=== PATIENT | female | born 1930 | race Caucasian/White ===

== ENCOUNTER 2018-01-16 03:13 | Inpatient (IN) ==
--- NOTE | 2018-01-16 03:34 | ED ---
HPI General Chief Complaint: Trauma Stated Complaint: Trauma transfer Time Seen by Provider: 01/16/18 03:15 Source: patient and EMS Mode of arrival: EMS Limitations: physical limitation History of Present Illness HPI Narrative: 87-year-old female complains of right shoulder pain, right chest wall pain and right upper back pain. Patient states that she fell out off a chair at home this evening. Patient denies any head injury. Patient denies any headache or neck pain. Patient denies any visual change. Patient complains of sharp pain localized to the right shoulder right chest and right upper back. Patient denies abdominal pain. Patient denies any focal weakness or numbness of the extremity. Patient complained the right ankle pain. Patient has history of hypertension, atrial fibrillation on aspirin 81 mg daily and Eliquis, hyperlipidemia, COPD, hypothyroidism, status post CVA, osteoarthritis. Patient also on Plavix 75 mg daily. complaint: Reports fall Onset (ago): hour(s) Fall from: chair Fall witnessed: yes, by family Place fall occurred: home Loss of consciousness: none Prolonged down time: no Symptoms prior to fall: Reports none Context: Reports tripped/slipped Location of injury: Reports chest and back Location of injury - extremities: Right: shoulder and ankle Severity: severe Severity scale (1-10): 10 Related Data Home Medications Medication Instructions Recorded Confirmed apixaban 2.5 mg PO BID 01/16/18 01/16/18 aspirin [Aspir-81] 81 mg PO DAILY 01/16/18 01/16/18 atorvastatin 40 mg PO DAILY 01/16/18 01/16/18 clopidogrel 75 mg PO DAILY 01/16/18 01/16/18 docusate sodium 100 mg PO BID 01/16/18 01/16/18 Allergies Allergy/AdvReac Type Severity Reaction Status Date / Time No Known Allergies Allergy Mild Uncoded 08/08/07 21:19 Review of Systems ROS: all other systems reviewed are negative PMFSH History History 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 SKIN: Focused skin assessment warm/dry. HEAD: Normocephalic. EYES: No scleral icterus. No injection or drainage. NECK: Supple, trachea midline. No JVD or lymphadenopathy. CARDIOVASCULAR: Regular rate and rhythm without murmurs, gallops, or rubs. RESPIRATORY: Patient has decreased breath sounds right chest. #[address] chest tube [address] right chest wall, mid axillary line. GASTROINTESTINAL: Abdomen soft, non-tender, nondistended. MUSCULOSKELETAL: Ecchymosis swelling tenderness noted right upper anterior chest wall area. Tenderness on palpation right clavicle. BACK: Nontender without obvious deformity. No CVA tenderness. Neurologic exam normal. Procedures Chest Tube Chest Tube 1: Chest Tube Location: Mid-Axillary Chest Size of Tube (cm): 22 Chest Tube Procedure: Yes betadine prep and sterile drapes applied Tube Sutured to Skin: Yes Sterile Dressing Applied: Yes Anesthesia: 1% Lidocaine Volume anesthetic (mL): 6 Incision made with: #11 blade [place] of [employer] [place]: Yes Tube Drainage: none Post Procedure CXR?: Yes Progress: Resolution of right pneumothorax. Patient Tolerated Procedure: Yes Post Procedure: sutured to skin and sterile dressing applied Course Initial Documented Vital Signs Temperature 98.9 F 01/16/18 03:26 Pulse Rate 72 01/16/18 03:26 Respiratory Rate 19 01/16/18 03:26 Pulse Oximetry 94 L 01/16/18 03:26 Last Documented Vital Signs Temperature 98.9 F 01/16/18 03:26 Pulse Rate 72 01/16/18 03:26 Respiratory Rate 19 01/16/18 03:26 Pulse Oximetry 95 01/16/18 04:10 Critical Care Time Critical Care Time: Yes Total Critical Care Time: 60 Attestation: Aggregate critical care time was 60 minutes. Time to perform other separately billable procedures was not included in the critical care time. My time did not include minutes spent treating any other patients simultaneously or on activities that did not directly contribute to the patient's treatment. The services I provided to this patient were to treat and/or prevent clinically significant deterioration that could result in: I provided critical care services requiring my management, as noted below: Chart data review, documentation time, medication orders and management, vital sign assessments/reviewing monitor data, ordering and reviewing lab tests, ordering and interpreting/reviewing x-rays and diagnostic studies, care of the patient and discussion of the patient with the admitting physicians. Medical Decision Making MDM Narrative Medical decision making narrative: 87-year-old female, trauma transfer from [facility] to [facility]. Patient has persistent right pneumothorax despite chest tube placement. Medical Screen Exam Complete: Yes Emergency Medical Condition: Yes Lab Data Result diagrams: 01/16/18 03:35 01/16/18 03:35 Lab Results 01/16/18 01/16/18 01/16/18 Range/Units 03:35 03:35 03:35 WBC 11.7 H (4.0-11.0) th/mm3 RBC 4.29 (4.00-5.30) mil/mm3 Hgb 12.4 (11.6-15.3) gm/dL Hct 37.0 (35.0-46.0) % MCV 86.4 (80.0-100.0) fL MCH 28.9 (27.0-34.0) pg MCHC 33.4 (32.0-36.0) % RDW 13.4 (11.6-17.2) % Plt Count 242 (150-450) th/mm3 MPV 7.1 (7.0-11.0) fL Prelim Diff (Auto) Slide review pending Neut % (Auto) 90.4 H (16.0-70.0) % Lymph % (Auto) 4.8 L (9.0-44.0) % [place] % (Auto) 4.4 (0.0-8.0) % Eos % (Auto) 0.1 (0.0-4.0) % Baso % (Auto) 0.3 (0.0-2.0) % Neut # (Auto) 10.6 H (1.8-7.7) th/mm3 Lymph # (Auto) 0.6 L (1.0-4.8) th/mm3 [place] # (Auto) 0.5 (0.0-0.9) th/mm3 Eos # (Auto) 0.0 (0.0-0.4) th/mm3 Baso # (Auto) 0.0 (0.0-0.2) th/mm3 WBC Differential Manual diff final Seg Neuts % (Manual) 71 H (16-70) % Band Neuts % (Manual) 17 H (0-6) % Lymphocytes % (Manual) 3 L (9-44) % Monocytes % (Manual) 9 H (0-8) % Abs Neuts (Manual) 10.3 H (1.8-7.7) th/mm3 Differential Comment . Toxic Granulation 1+ H (None) Platelet Estimate Normal (Normal) Platelet Morphology Normal (Normal) Acanthocytes (Spur) Occ H (None) PT 10.2 (9.8-11.6) sec INR 1.0 Ratio APTT 21.2 L (24.3-30.1) sec Sodium 133 L (136-145) meq/L Potassium 3.3 L (3.5-5.1) meq/L Chloride 101 (98-107) meq/L Carbon Dioxide 22.3 (21.0-32.0) meq/L Anion Gap 10 (5-15) meq/L BUN 11 (7-18) mg/dL Creatinine 0.52 (0.50-1.00) mg/dL Estimated GFR Greater than 89 (>89) mL/min Random Glucose 118 H (74-106) mg/dL Calcium 7.4 L* (8.5-10.1) mg/dL Prot Corrected Calcium 7.9 L (8.5-10.1) mg/dL Total Bilirubin 0.4 (0.2-1.0) mg/dL AST 22 (15-37) U/L ALT 18 (10-53) U/L Alkaline Phosphatase 65 (45-117) U/L Total Protein 6.2 L (6.4-8.2) g/dL Albumin 3.4 (3.4-5.0) g/dL Blood Type Blood Type Recheck Antibody Screen 01/16/18 Range/Units 03:35 WBC (4.0-11.0) th/mm3 RBC (4.00-5.30) mil/mm3 Hgb (11.6-15.3) gm/dL Hct (35.0-46.0) % MCV (80.0-100.0) fL MCH (27.0-34.0) pg MCHC (32.0-36.0) % RDW (11.6-17.2) % Plt Count (150-450) th/mm3 MPV (7.0-11.0) fL Prelim Diff (Auto) Neut % (Auto) (16.0-70.0) % Lymph % (Auto) (9.0-44.0) % [place] % (Auto) (0.0-8.0) % Eos % (Auto) (0.0-4.0) % Baso % (Auto) (0.0-2.0) % Neut # (Auto) (1.8-7.7) th/mm3 Lymph # (Auto) (1.0-4.8) th/mm3 [place] # (Auto) (0.0-0.9) th/mm3 Eos # (Auto) (0.0-0.4) th/mm3 Baso # (Auto) (0.0-0.2) th/mm3 WBC Differential Seg Neuts % (Manual) (16-70) % Band Neuts % (Manual) (0-6) % Lymphocytes % (Manual) (9-44) % Monocytes % (Manual) (0-8) % Abs Neuts (Manual) (1.8-7.7) th/mm3 Differential Comment Toxic Granulation (None) Platelet Estimate (Normal) Platelet Morphology (Normal) Acanthocytes (Spur) (None) PT (9.8-11.6) sec INR Ratio APTT (24.3-30.1) sec Sodium (136-145) meq/L Potassium (3.5-5.1) meq/L Chloride (98-107) meq/L Carbon Dioxide (21.0-32.0) meq/L Anion Gap (5-15) meq/L BUN (7-18) mg/dL Creatinine (0.50-1.00) mg/dL Estimated GFR (>89) mL/min Random Glucose (74-106) mg/dL Calcium (8.5-10.1) mg/dL Prot Corrected Calcium (8.5-10.1) mg/dL Total Bilirubin (0.2-1.0) mg/dL AST (15-37) U/L ALT (10-53) U/L Alkaline Phosphatase (45-117) U/L Total Protein (6.4-8.2) g/dL Albumin (3.4-5.0) g/dL Blood Type O Positive Blood Type Recheck Required Antibody Screen Negative Imaging Data Radiologist's impression: Chest X-Ray 01/16/18 03:25 CONCLUSION: 1. Smallbore right-sided chest tube in place with moderate residual pneumothorax. 2. Patchy airspace disease in the right mid to lower lung zones which may reflect volume loss versus pulmonary contusions. 3. Multiple right-sided rib fractures. Chest X-Ray 01/16/18 04:11 CONCLUSION: 1. Resolution of right-sided pneumothorax following interval placement of large bore right apical chest tube. Discharge Plan Discharge Disposition Patient Disposition: 30 Still Patient Discharge Details Diagnosis: Pneumothorax on right, Right rib fracture, Fracture of clavicle, right, closed Physicians Team ED Provider: Heron Rico Primary Care Provider: Rishabh Beck Attending Provider: Shaquille Davies Status ED Status: Admitted Patient
[2018-01-16] MEDS: Sod Chloride 0.9% Inj 1,000 ML IV.CONT SCH ×3 (03:36→23:14)
[2018-01-16] MEDS ORDERED: Midazolam Inj 5 MG/ML 1 ML Vial IV.PUSH ONE (03:59)
[2018-01-16] MEDS ORDERED: Morphine Inj 4 MG/ML Vial IV.PUSH ONE (04:00)
[2018-01-16 04:02] LABS: Baso % (Auto) 0.3 % (0.0-2.0); Eos % (Auto) 0.1 % (0.0-4.0); Hemoglobin 12.4 gm/dL (11.6-15.3); Lymph # (Auto) 0.6 th/mm3 (1.0-4.8); Lymph % (Auto) 4.8 % (9.0-44.0); Mean Corpuscular HGB Conc 33.4 % (32.0-36.0); Mean Corpuscular Hemoglobin 28.9 pg (27.0-34.0); Mean Corpuscular Volume 86.4 fL (80.0-100.0); Mean Platelet Volume 7.1 fL (7.0-11.0); Mono # (Auto) 0.5 th/mm3 (0.0-0.9); Mono % (Auto) 4.4 % (0.0-8.0); Neut # (Auto) 10.6 th/mm3 (1.8-7.7); Neut % (Auto) 90.4 % (16.0-70.0); Platelet Count 242 th/mm3 (150-450); Red Blood Count 4.29 mil/mm3 (4.00-5.30); Red Cell Distribution Width 13.4 % (11.6-17.2); White Blood Count 11.7 th/mm3 (4.0-11.0)
[2018-01-16 04:04] LABS: Activated Partial Thrombo Time 21.2 sec (24.3-30.1); Prothrombin Time 10.2 sec (9.8-11.6)
[2018-01-16 04:09] LABS: Alanine Aminotransferase 18 U/L (10-53); Albumin 3.4 g/dL (3.4-5.0); Alkaline Phosphatase 65 U/L (45-117); Anion Gap 10 meq/L (5-15); Aspartate Aminotransferase 22 U/L (15-37); Blood Urea Nitrogen 11 mg/dL (7-18); Calcium 7.4 mg/dL (8.5-10.1); Carbon Dioxide 22.3 meq/L (21.0-32.0); Chloride 101 meq/L (98-107); Glomerular Filtration Rate Greater Than 89 mL/min (>89); Glucose,Random 118 mg/dL (74-106); Potassium 3.3 meq/L (3.5-5.1); Sodium 133 meq/L (136-145); Total Protein 6.2 g/dL (6.4-8.2)
[2018-01-16 04:28] LABS: Lymphocytes 3 % (9-44); Monocytes 9 % (0-8); Platelet Estimate Normal (Normal); Platelet Morphology Normal (Normal)
--- NOTE | 2018-01-16 04:28 | XR ---
EXAM DATE: 01/16/2018 3:25 AM EDT AGE/SEX: 87 years / Female INDICATIONS: Trauma to chest post fall today. Right sided chest tube placement. CLINICAL DATA: This is the patient's initial encounter. Patient reports that signs and symptoms have been present for 1 day and indicates a pain score of 10/10. MEDICAL/SURGICAL HISTORY: None. None. COMPARISON: No prior exams available for comparison. FINDINGS: There is a smallbore right-sided chest tube terminating in the medial mid right hemithorax. There is a moderate sized right-sided pneumothorax measuring 4.8 cm at the apex. No significant mediastinal sh ift. Patchy airspace disease in the right mid to lower lung zone. Cardiac silhouette is mildly enlarg ed. Multiple right-sided rib fractures. CONCLUSION: 1. Smallbore right-sided chest tube in place with moderate residual pneumothorax. 2. Patchy airspace disease in the right mid to lower lung zones which may reflect volume loss versus pulmonary contusions. 3. Multiple right-sided rib fractures. Electronically signed by: Yoel Rouse MD 01/16/2018 4:27 AM EDT
[2018-01-16 04:29] LABS: Acanthocytes Occ; Toxic Granulation 1+
--- NOTE | 2018-01-16 04:53 | XR ---
EXAM DATE: 01/16/2018 4:11 AM EDT AGE/SEX: 87 years / Female INDICATIONS: Right sided chest tube placement. CLINICAL DATA: This is the patient's subsequent encounter. Patient reports that signs and symptoms h ave been present for 1 day and indicates a pain score of 6/10. MEDICAL/SURGICAL HISTORY: None. None. COMPARISON: [facility], CHEST 1V SINGLE AP, 01/16/2018. . FINDINGS: Interval placement of large bore right apical chest tube with near interval resolution of moderate-si zed right pneumothorax. Stable small bore right-sided chest tube. Remainder of exam is unchanged. CONCLUSION: 1. Resolution of right-sided pneumothorax following interval placement of large bore right apical ch est tube. Electronically signed by: Yoel Rouse MD 01/16/2018 4:52 AM EDT
[2018-01-16] MEDS: Acetaminophen Inj 650 MG/65 ML VIAL IV.SIG SCH ×3 (06:25→20:00)
--- NOTE | 2018-01-16 07:43 | P.CONOP ---
[facility] Orthopedics Consult Note - [facility] Consult date: 01/16/18 Requesting physician: Anya Sim Consult reason: fracture Chief complaint: Rt Pneumothorax, Mult Left Rib Fxs, Rt Clavicle Fx Narrative: [facility] Narrative: 87-year-old female complains of right shoulder pain, right chest wall pain and right upper back pain. Patient states that she fell out off a chair at home this evening. Patient denies any head injury. Patient denies any headache or neck pain. Patient denies any visual change. Patient complains of sharp pain localized to the right shoulder right chest and right upper back. Patient denies abdominal pain. Patient denies any focal weakness or numbness of the extremity. Patient complained the right ankle pain. Patient has history of hypertension, atrial fibrillation on aspirin 81 mg daily and Eliquis, hyperlipidemia, COPD, hypothyroidism, status post CVA, osteoarthritis. Patient also on Plavix 75 mg daily. Studies and x-ray shows evidence of multiple right rib fractures and a midshaft right clavicle fracture with moderate comminution but no significant displacement. 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 - Medical History Medical History: Medical History (Last Reviewed 01/16/18 @ 03:40 by Heron Rico MD) Atrial fibrillation COPD (chronic obstructive pulmonary disease) CVA (cerebral vascular accident) Hyperlipidemia Hypertension Hypothyroidism Osteoarthritis - Surgical History Surgical History: Surgical History (Last Reviewed 01/16/18 @ 03:40 by Heron Rico MD) No history of previous surgery - Tobacco History Second Hand Smoke Exposure: No Smoking Status: Never smoker - Alcohol History How Often Do You Have a Drink Containing Alcohol: Never - Immunization History Tetanus Immunization: <5 Years Hx Influenza Vaccine This Season: Yes Medications and Allergies Active Medications: Active Medications Albuterol (Duoneb Neb (Ant)) 1 ampul NEB Q6HR NEB ANT Albuterol (Duoneb Neb (Prn)) 1 ampul NEB Q2HR NEB PRN PRN Reason: SHORTNESS OF BREATH Atorvastatin Calcium (Lipitor) 40 mg PO HS ANT Chlorhexidine Gluconate (Chlorhexidine 2% Cloth) 3 pack TOPICAL DAILY@0400 [facility] Stop: 01/22/18 03:59 Chlorhexidine Gluconate (Chlorhexidine 2% Cloth) 3 pack TOPICAL DAILY@0400 PRN PRN Reason: Extra cloth needed Stop: 01/22/18 03:59 Docusate Sodium (Colace) 100 mg PO BID [facility] Enalaprilat (Vasotec Inj) 1.25 mg IV.PUSH Q8H PRN PRN Reason: Blood pressure 180/95 Last Admin: 01/16/18 06:26 Dose: 1.25 mg Famotidine (Pepcid) 20 mg PO BID [facility] Sodium Chloride (Ns Inj) 1,000 mls @ 100 mls/hr IV.CONT .Q10H [facility] Last Admin: 01/16/18 03:36 Dose: 100 mls/hr Acetaminophen (Ofirmev Inj) 650 mg in 65 mls @ 400 mls/hr IV.SIG Q6H [facility] Stop: 01/16/18 23:55 Last Infusion: 01/16/18 07:04 Dose: Infused Ondansetron HCl (Zofran Inj) 4 mg IV.PUSH Q6H PRN PRN Reason: NAUSEA OR VOMITING Sodium Chloride (Ns Flush) 2 ml IV.FLUSH UNSCH PRN PRN Reason: FLUSH AFTER USING IV ACCESS Sodium Chloride (Ns Flush) 2 ml IV.FLUSH BID [facility] Allergies Allergy/AdvReac Type Severity Reaction Status Date / Time No Known Allergies Allergy Mild Uncoded 08/08/07 21:19 Home Medications Medication Instructions Recorded Confirmed Type apixaban 2.5 mg PO BID 01/16/18 01/16/18 History aspirin [Aspir-81] 81 mg PO DAILY 01/16/18 01/16/18 History atorvastatin 40 mg PO DAILY 01/16/18 01/16/18 History clopidogrel 75 mg PO DAILY 01/16/18 01/16/18 History docusate sodium 100 mg PO BID 01/16/18 01/16/18 History Exam Vital signs: Vital Signs 01/16/18 03:26 01/16/18 03:31 01/16/18 04:10 Temperature 98.9 F Pulse Rate 72 Respiratory Rate 19 Blood Pressure Pulse Oximetry 94 L 94 L 95 01/16/18 05:27 01/16/18 05:45 Temperature 98.7 F Pulse Rate 77 Respiratory Rate 15 13 Blood Pressure 173/88 H Pulse Oximetry 98 Intake & Output 01/15/18 01/16/18 01/16/18 18:59 06:59 18:59 Intake Total 65 Output Total 1225 / 1225 Balance -1225 / -1225 65 65 Weight 46.5 kg Intake: IV Ofirmev Inj 650 mg In 65 ml @ 65 65 400 mls/hr IV.SIG Q6H ANT Rx#: [id number] Output: Urine Amount (Catheter) 1225 / 1225 Indwelling Urethral Catheter 1225 / 1225 Other: Date of Last Bowel Movement 01/14/18 Weight On Admission 46.5 kg Narrative: Exam Narrative Exam Narrative: GENERAL: Well-nourished, well-developed patient. SKIN: Focused skin assessment warm/dry. HEAD: Normocephalic. EYES: No scleral icterus. No injection or drainage. NECK: Supple, trachea midline. No JVD or lymphadenopathy. CARDIOVASCULAR: Regular rate and rhythm without murmurs, gallops, or rubs. RESPIRATORY: Patient has decreased breath sounds right chest. #8 [place] chest tube in place right chest wall, mid axillary line. GASTROINTESTINAL: Abdomen soft, non-tender, nondistended. MUSCULOSKELETAL: Ecchymosis swelling tenderness noted right upper anterior chest wall area. Tenderness on palpation right clavicle. No tenderness over the region of the proximal humerus. Elbow is nontender. Radial pulse 2+. Sensation normal. Pain with range of motion. She is in a sling BACK: Nontender without obvious deformity. No CVA tenderness. Neurologic exam normal. Results - Labs Result Diagrams: 01/16/18 03:35 01/16/18 03:35 Labs: Laboratory Results - last 24 hr 01/16/18 01/16/18 01/16/18 03:35 03:35 03:35 WBC 11.7 H RBC 4.29 Hgb 12.4 Hct 37.0 MCV 86.4 MCH 28.9 MCHC 33.4 RDW 13.4 Plt Count 242 MPV 7.1 Prelim Diff (Auto) Slide review pending Neut % (Auto) 90.4 H Lymph % (Auto) 4.8 L [place] % (Auto) 4.4 Eos % (Auto) 0.1 Baso % (Auto) 0.3 Neut # (Auto) 10.6 H Lymph # (Auto) 0.6 L [place] # (Auto) 0.5 Eos # (Auto) 0.0 Baso # (Auto) 0.0 WBC Differential Manual diff final Seg Neuts % (Manual) 71 H Band Neuts % (Manual) 17 H Lymphocytes % (Manual) 3 L Monocytes % (Manual) 9 H Abs Neuts (Manual) 10.3 H Differential Comment . Toxic Granulation 1+ H Platelet Estimate Normal Platelet Morphology Normal Acanthocytes (Spur) Occ H PT 10.2 INR 1.0 APTT 21.2 L Sodium 133 L Potassium 3.3 L Chloride 101 Carbon Dioxide 22.3 Anion Gap 10 BUN 11 Creatinine 0.52 Estimated GFR Greater than 89 Random Glucose 118 H Calcium 7.4 L* Prot Corrected Calcium 7.9 L Total Bilirubin 0.4 AST 22 ALT 18 Alkaline Phosphatase 65 Total Protein 6.2 L Albumin 3.4 Blood Type Blood Type Recheck Antibody Screen 01/16/18 03:35 WBC RBC Hgb Hct MCV MCH MCHC RDW Plt Count MPV Prelim Diff (Auto) Neut % (Auto) Lymph % (Auto) [place] % (Auto) Eos % (Auto) Baso % (Auto) Neut # (Auto) Lymph # (Auto) [place] # (Auto) Eos # (Auto) Baso # (Auto) WBC Differential Seg Neuts % (Manual) Band Neuts % (Manual) Lymphocytes % (Manual) Monocytes % (Manual) Abs Neuts (Manual) Differential Comment Toxic Granulation Platelet Estimate Platelet Morphology Acanthocytes (Spur) PT INR APTT Sodium Potassium Chloride Carbon Dioxide Anion Gap BUN Creatinine Estimated GFR Random Glucose Calcium Prot Corrected Calcium Total Bilirubin AST ALT Alkaline Phosphatase Total Protein Albumin Blood Type O Positive Blood Type Recheck Required Antibody Screen Negative - Diagnostic results Imaging: Impressions Chest X-Ray 01/16/18 03:25 CONCLUSION: 1. Smallbore right-sided chest tube in place with moderate residual pneumothorax. 2. Patchy airspace disease in the right mid to lower lung zones which may reflect volume loss versus pulmonary contusions. 3. Multiple right-sided rib fractures. I have reviewed the x-ray and the radiologist interpretation. There is evidence of multiple right rib fractures and evidence of a comminuted midshaft to mid distal third fracture of the right clavicle without significant displacement Chest X-Ray 01/16/18 04:11 CONCLUSION: 1. Resolution of right-sided pneumothorax following interval placement of large bore right apical chest tube. I have reviewed the x-ray and the radiologist interpretation. There is evidence of mild displacement of a comminuted mid to distal third fracture of the right clavicle. Multiple right rib fractures Assessment and Plan - Assessment and Plan Fracture right clavicle, comminuted, midshaft, mildly displaced. Multiple right rib fractures. Pneumothorax. PLAN: Sling to the right arm. Limited range of motion of the right shoulder and arm. Likely nonsurgical treatment of the right clavicle fracture. Sometimes, this displaces significantly, especially with multiple rib fractures. If significant displacement develops, delayed surgical treatment might be a consideration. With her overall age and medical condition, I would prefer nonsurgical treatment
[2018-01-16] MEDS ORDERED: amLODIPine 5 MG Tablet PO SCH (09:30)
[2018-01-16] MEDS: Sodium Chloride 0.9% 2 ML Flush BID IV.FLUSH SCH ×2 (09:52→21:12)
[2018-01-16] MEDS: Famotidine 20 MG Tablet PO SCH ×2 (09:52→23:12)
[2018-01-16] MEDS: Docusate Sodium 100 MG Capsule PO SCH ×2 (09:52→23:12)
--- NOTE | 2018-01-16 10:45 | US ---
EXAM DATE: 01/16/2018 12:00 AM EDT AGE/SEX: 87 years / Female INDICATIONS: Syncope. CLINICAL DATA: This is the patient's initial encounter. Patient reports that signs and symptoms have been present for 1 day and indicates a pain score of 0/10. MEDICAL/SURGICAL HISTORY: Chronic obstructive pulmonary disease. Atrial fibrillation. CVA. Hype rlipidemia. Hypertension. Hypothyroidism. Osteoarthritis. None. COMPARISON: No prior exams available for comparison. VELOCITY PARAMETERS: ICA/CCA Ratio: Right 1.1 , Left 1.1 ICA: Right 88 cm/sec, Left 73 cm/sec CCA: Right 80 cm/sec, Left 69 cm/sec ECA: Right 68 cm/sec, Left 86 cm/sec Vertebral: Right 72 cm/sec antegrade, Left 19 cm/sec antegrade FINDINGS: Right Carotid: Moderate arteriosclerotic plaque is visualized.The waveforms are within normal limits . Left Carotid: Moderate arteriosclerotic plaque is visualized. The waveforms are within normal limits . Other: None. CONCLUSION: 1. Right Internal Carotid Artery: No hemodynamically significant stenosis. 2. Left Internal Carotid Artery: No hemodynamically significant stenosis. Electronically signed by: Hosea Hooks MD 01/16/2018 10:44 AM EDT
[2018-01-16] MEDS: Ketorolac 10 MG Tablet PO SCH ×3 (11:14→23:14)
[2018-01-16] MEDS: Lisinopril 20 MG Tablet PO SCH (11:14)
--- NOTE | 2018-01-16 15:56 | XR ---
EXAM DATE: 01/16/2018 12:00 AM EDT AGE/SEX: 87 years / Female INDICATIONS: Right ankle pain. CLINICAL DATA: This is the patient's subsequent encounter. Patient reports that signs and symptoms h ave been present for 4 - 6 days and indicates a pain score of 6/10. MEDICAL/SURGICAL HISTORY: None. None. COMPARISON: No prior exams available for comparison. FINDINGS: Bony structures are intact and in normal alignment. Joints are intact without dislocation or signifi cant arthropathy. Mild osteopenia. Vascular calcifications are present. Soft tissues are unremarkable . No radiopaque foreign bodies seen. CONCLUSION: Negative 2 view study. Electronically signed by: Jose Pascual MD 01/16/2018 3:55 PM EDT
[2018-01-16] MEDS: levETIRAcetam 500 MG Tablet PO SCH ×2 (16:06→23:14)
--- NOTE | 2018-01-16 16:14 | MH ---
cc: Shaquille Davies MD DATE OF ADMISSION: 01/16/2018 REASON FOR ADMISSION: Right chest trauma, 3rd, 4th, 5th rib fracture, and small right pneumothorax. HISTORY OF PRESENT ILLNESS: This is an 87-year-old female apparently fell out of a chair at home and injured her right shoulder, right chest, and upper back. The patient was transferred to the [facility] Emergency Room where she was evaluated, found to have right-sided pneumothorax and some sort of a small chest tube drain was placed. The patient is now being transferred to our institution for further care. PAST MEDICAL HISTORY: CVA, COPD, hyperlipidemia, hypertension, hypothyroidism, and atrial fibrillation. The patient has passed out about 3-4 times in the past. SOCIAL HISTORY: The patient does not smoke, does not drink. PHYSICAL EXAMINATION: GENERAL: Reveals a pleasant, 87-year-old lady. HEENT: Normocephalic. No trauma to the head. Pupils equally reactive. Extraocular movements intact. NECK: Bilateral carotid pulses. Mild left-sided bruit, very subtle. CHEST: Bilateral breath sounds at this point, decreased of both lung yang, consistent with advanced disease. The patient is right-sided tiny chest tube that was placed by the emergency room and we placed a real chest tube here while the old one was removed. ABDOMEN: Soft, active bowel sounds. No rebound, no guarding, no masses. EXTREMITIES: Within normal limits. BACK: Normal. NEUROLOGIC: The patient is grossly intact. IMPRESSION: The patient with right-sided rib fractures and pneumothorax on the right. The patient will be admitted, treated according to the principals, and further care as dictated by clinical situation. MD TYREL Castrejon/anjel , 03:48 PM , 03:55 PM
[2018-01-16] MEDS: Gabapentin 100 MG Capsule PO SCH (19:59)
[2018-01-17] MEDS: Acetaminophen Inj 650 MG/65 ML VIAL IV.SIG SCH
--- NOTE | 2018-01-17 01:00 | CT ---
EXAM DATE: 01/17/2018 12:20 AM EDT AGE/SEX: 87 years / Female INDICATIONS: Follow up head trauma. CLINICAL DATA: This is the patient's initial encounter. Patient reports that signs and symptoms have been present for 1 day and indicates a pain score of 0/10. MEDICAL/SURGICAL HISTORY: Cardiovascular disease. Hypertension. Chronic obstructive pulmonary dis ease. CVA None. RADIATION DOSE: 40.23 CTDI (mGy) COMPARISON: No prior exams available for comparison. [facility] TECHNIQUE: CT of the head without contrast. Using automated exposure control and adjustment of the mA and/or kV according to patient size, radiation dose was kept as low as reasonably achievable to ob tain optimal diagnostic quality images. DICOM format image data is available electronically for revi ew and comparison. FINDINGS: Noncontrast axial head CT demonstrates the ventricles to be normal in size and configuration with a n ormal sulcal pattern. No acute intracranial hemorrhage, acute cortical infarction, mass or midline sh ift is seen. Posterior fossa structures are unremarkable. Bone windows are unremarkable. CONCLUSION: No evidence of acute intracranial pathology. No masses are identified. . Electronically signed by: Derek Betancourt MD 01/17/2018 12:59 AM EDT
--- NOTE | 2018-01-17 01:04 | CT ---
EXAM DATE: 01/17/2018 12:20 AM EDT AGE/SEX: 87 years / Female INDICATIONS: Trauma. Evaluate pneumothorax. CLINICAL DATA: This is the patient's initial encounter. Patient reports that signs and symptoms have been present for 1 day and indicates a pain score of 8/10. MEDICAL/SURGICAL HISTORY: Cardiovascular disease. Hypertension. Chronic obstructive pulmonary dis ease. CVA None. RADIATION DOSE: 5.99 CTDI (mGy) COMPARISON: No prior exams available for comparison. [facility] TECHNIQUE: Multiple contiguous axial images were obtained through the chest without contrast. Image s were obtained in suspended respiration using multiple row detector helical technique. Using automa junaid exposure control and adjustment of the mA and/or kV according to patient size, radiation dose was kept as low as reasonably achievable to obtain optimal diagnostic quality images. DICOM format imag e data is available electronically for review and comparison. FINDINGS: Right chest tube is in place with a small pneumothorax at the apex but there are no signs of tension. No pulmonary nodules are identified. No pleural effusions are identified. Examination of the medias tinum demonstrates no abnormally enlarged lymph nodes by CT criteria. No axillary or hilar abnormalit ies are identified. Coronary artery calcifications are present. A small hiatal hernia is present. There is fracture of the right clavicle as well as multiple right upper rib fractures. CONCLUSION: Right chest tube in place with small right apical pneumothorax without tension. Multiple right rib fractures and right clavicle fracture Electronically signed by: Derek Betancourt MD 01/17/2018 1:02 AM EDT
[2018-01-17] MEDS ORDERED: Chlorhexidine Gluconate 2% 1 Pack (2 Cloths) TOPICAL PRN (04:00)
[2018-01-17 04:02] LABS: Baso # (Auto) 0.1 th/mm3 (0.0-0.2); Eos # (Auto) 0.1 th/mm3 (0.0-0.4); Eos % (Auto) 1.9 % (0.0-4.0); Hematocrit 29.3 % (35.0-46.0); Hemoglobin 9.8 gm/dL (11.6-15.3); Lymph # (Auto) 0.8 th/mm3 (1.0-4.8); Lymph % (Auto) 11.8 % (9.0-44.0); Mean Corpuscular HGB Conc 33.6 % (32.0-36.0); Mean Corpuscular Hemoglobin 29.4 pg (27.0-34.0); Mean Corpuscular Volume 87.4 fL (80.0-100.0); Mean Platelet Volume 7.2 fL (7.0-11.0); Mono # (Auto) 0.6 th/mm3 (0.0-0.9); Mono % (Auto) 9.7 % (0.0-8.0); Neut # (Auto) 4.9 th/mm3 (1.8-7.7); Neut % (Auto) 75.6 % (16.0-70.0); Platelet Count 296 th/mm3 (150-450); Red Blood Count 3.35 mil/mm3 (4.00-5.30); Red Cell Distribution Width 13.6 % (11.6-17.2); White Blood Count 6.5 th/mm3 (4.0-11.0)
--- NOTE | 2018-01-17 04:19 | XR ---
EXAM DATE: 01/17/2018 12:00 AM EDT AGE/SEX: 87 years / Female INDICATIONS: Pneumothorax. CLINICAL DATA: This is the patient's subsequent encounter. Patient reports that signs and symptoms h ave been present for 2 days and indicates a pain score of Nonresponsive. MEDICAL/SURGICAL HISTORY: None. None. COMPARISON: [facility] [place]ST 1V SINGLE AP, 01/16/2018. . FINDINGS: The cardiac silhouette is enlarged in transverse diameter. A right chest tube is in place. There is n o evidence of pneumothorax. The left lung is free of acute parenchymal opacity. CONCLUSION: There is no evidence of pneumothorax. Electronically signed by: Derek Betancourt MD 01/17/2018 4:18 AM EDT
[2018-01-17 04:29] LABS: Anion Gap 10 meq/L (5-15); Blood Urea Nitrogen 10 mg/dL (7-18); Calcium 7.3 mg/dL (8.5-10.1); Carbon Dioxide 24.3 meq/L (21.0-32.0); Chloride 101 meq/L (98-107); Glomerular Filtration Rate Greater Than 89 mL/min (>89); Glucose,Random 92 mg/dL (74-106); Potassium 3.4 meq/L (3.5-5.1); Sodium 135 meq/L (136-145)
[2018-01-17 04:41] LABS: Total Protein 5.4 g/dL (6.4-8.2)
[2018-01-17] MEDS: Chlorhexidine Gluconate 2% 1 Pack (2 Cloths) TOPICAL SCH (05:22)
[2018-01-17] MEDS: Levothyroxine 88 MCG Tablet PO SCH (05:23)
[2018-01-17] MEDS: Ketorolac 10 MG Tablet PO SCH ×4 (05:23→22:25)
[2018-01-17] MEDS: levETIRAcetam 500 MG Tablet PO SCH ×2 (08:33→21:05)
[2018-01-17] MEDS: amLODIPine 10 MG Tablet PO SCH (08:34)
[2018-01-17] MEDS: Docusate Sodium 100 MG Capsule PO SCH ×2 (08:35→21:05)
[2018-01-17] MEDS: Gabapentin 100 MG Capsule PO SCH ×3 (08:35→17:10)
[2018-01-17] MEDS: Lisinopril 20 MG Tablet PO SCH (08:35)
[2018-01-17] MEDS: Famotidine 20 MG Tablet PO SCH ×2 (08:35→21:06)
[2018-01-17] MEDS: Calcium/Vitamin D 250/125 MG Tablet PO SCH ×2 (08:36→21:06)
[2018-01-17] MEDS: Polyethylene Glycol 3350 17 GM Packet PO SCH (08:36)
[2018-01-17] MEDS: Sodium Chloride 0.9% 2 ML Flush BID IV.FLUSH SCH ×2 (08:36→21:07)
[2018-01-17] MEDS: Sod Chloride 0.9% Inj 1,000 ML IV.CONT SCH ×2 (10:55→20:58)
--- NOTE | 2018-01-17 16:30 | P.PNCC ---
Subjective Brief History: [place]: Fell out of a chair landing on her right side. No LOC. On Plavix and ASA at home. INJURIES: RIGHT rib fxs (multiple) RIGHT PTX RIGHT pulmonary contusion RIGHT clavicle fx 24 Hour Review/Hospital Course: 01/17/18 Awake and alert during trauma rounds this AM CXR today shows no PTX- plan to DC CT later today Pain controlled on minimal medication Incentive spirometer volume = 1000mL Transfer to floor today Objective Vital Signs / I&O: Vital Signs 01/16/18 16:53 01/16/18 20:00 01/16/18 20:15 Temperature 98.5 F Pulse Rate 66 82 84 Respiratory Rate 17 20 16 Blood Pressure 140/70 Pulse Oximetry 97 01/17/18 00:00 01/17/18 00:15 01/17/18 04:00 Temperature 98.1 F 98.6 F Pulse Rate 70 64 Respiratory Rate 19 16 19 Blood Pressure 161/72 H 132/59 L Pulse Oximetry 98 98 01/17/18 05:53 01/17/18 08:00 01/17/18 08:27 Temperature 97.6 F Pulse Rate 75 67 Respiratory Rate 16 20 24 Blood Pressure 191/79 H Pulse Oximetry 97 98 01/17/18 09:00 01/17/18 12:00 Temperature 97.6 F Pulse Rate 75 82 Respiratory Rate 18 Blood Pressure 144/78 H Pulse Oximetry 95 Intake & Output 01/16/18 01/17/18 01/17/18 18:59 06:59 18:59 Intake Total 1130 / 1130 1530 / 1530 1000 / 1000 Output Total 330 / 330 Balance 1130 / 1130 1200 / 1200 1000 / 1000 Weight 48.7 kg Intake: IV 1130 / 1130 1130 / 1130 1000 / 1000 NS Inj 1,000 ML @ 100 mls/hr IV 1000 / 1000 1000 / 1000 1000 / 1000 .CONT .Q10H WANDA Rx#:[id number] Ofirmev Inj 650 mg In 65 ml @ 130 / 130 130 / 130 400 mls/hr IV.SIG Q6H WANDA Rx#: [id number] Oral 400 / 400 Output: Urine 300 / 300 Chest Tube Drainage 30 / 30 #2 Right 30 / 30 Other: # Voids 5 # Incontinent Voids 2 Date of Last Bowel Movement 01/14/18 01/14/18 01/14/18 Result Diagrams: 01/17/18 03:36 01/17/18 03:36 Imaging: Impressions Chest CT 01/17/18 00:00 CONCLUSION: Right chest tube in place with small right apical pneumothorax without tension. Multiple right rib fractures and right clavicle fracture Chest X-Ray 01/17/18 00:00 CONCLUSION: There is no evidence of pneumothorax. Head CT 01/17/18 00:00 CONCLUSION: No evidence of acute intracranial pathology. No masses are identified. . Disinhibition Score: 14.00 Aggression Score: 14.00 Lability Score: 14.00 Agitated Behavior Total Score: 14 Objective Remarks: GENERAL: 87 year old well-nourished female sitting up in bed. SKIN: Warm and dry. Right chest wall ecchymosis noted. HEAD:Normocephalic. ENT: No nasal bleeding or discharge. Mucous membranes pink and moist. NECK: Trachea midline. No JVD. CARDIOVASCULAR: Regular rate and rhythm. RESPIRATORY: No accessory muscle use. Clear to auscultation. Breath sounds equal bilaterally. RIGHT apical CT secured to pleura vac system on -20cm suction. No air leak on water seal. GASTROINTESTINAL: Abdomen soft, non-tender, nondistended. + BS MUSCULOSKELETAL: Extremities without cyanosis, or edema. RUE sling. MAEW, + perfused NEUROLOGICAL: Awake and alert. Normal speech. Assessment and Plan Plan: INJURIES: RIGHT rib fxs (multiple) RIGHT PTX RIGHT pulmonary contusion RIGHT clavicle fx (non-op) PMHx: HLD, CVA, A-fib, COPD, HTN, hypothyroidism, osteoarthritis RIGHT rib fxs, RIGHT PTX, RIGHT pulmonary contusion Supportive care 01/16: RIGHT CT placement Pulmonary toileting CXR today shows no PTX Plan to DC CT today CXR in AM Pain control Bowel regimen OOB- PT and OT ordered OK for Plavix and ASA RIGHT clavicle fx Orthopedics consulted Non-op NWB RUE- maintain sling Pain control OT Plan of care discussed with patient and [employer] at bedside. Collaborating Trauma MD agrees with plan. Case management consulted to assist with discharge planning.
[2018-01-17] MEDS ORDERED: Melatonin 5 MG Tablet PO SCH (21:00)
[2018-01-18] MEDS: Chlorhexidine Gluconate 2% 1 Pack (2 Cloths) TOPICAL SCH (03:10)
[2018-01-18] MEDS: Sod Chloride 0.9% Inj 1,000 ML IV.CONT SCH ×2 (04:19→07:23)
[2018-01-18] MEDS: Ketorolac 10 MG Tablet PO SCH ×2 (04:52→11:00)
[2018-01-18] MEDS: Levothyroxine 88 MCG Tablet PO SCH (05:15)
[2018-01-18 05:37] LABS: Baso # (Auto) 0.1 th/mm3 (0.0-0.2); Eos # (Auto) 0.3 th/mm3 (0.0-0.4); Eos % (Auto) 4.2 % (0.0-4.0); Hemoglobin 10.7 gm/dL (11.6-15.3); Lymph # (Auto) 1.1 th/mm3 (1.0-4.8); Lymph % (Auto) 16.4 % (9.0-44.0); Mean Corpuscular HGB Conc 34.6 % (32.0-36.0); Mean Corpuscular Hemoglobin 29.8 pg (27.0-34.0); Mean Platelet Volume 7.2 fL (7.0-11.0); Mono # (Auto) 0.8 th/mm3 (0.0-0.9); Mono % (Auto) 12.2 % (0.0-8.0); Neut # (Auto) 4.4 th/mm3 (1.8-7.7); Neut % (Auto) 66.2 % (16.0-70.0); Platelet Count 295 th/mm3 (150-450); Red Blood Count 3.61 mil/mm3 (4.00-5.30); Red Cell Distribution Width 13.7 % (11.6-17.2); White Blood Count 6.6 th/mm3 (4.0-11.0)
[2018-01-18 05:41] LABS: Anion Gap 11 meq/L (5-15); Blood Urea Nitrogen 11 mg/dL (7-18); Calcium 8.1 mg/dL (8.5-10.1); Carbon Dioxide 24.2 meq/L (21.0-32.0); Chloride 100 meq/L (98-107); Glomerular Filtration Rate Greater Than 89 mL/min (>89); Glucose,Random 85 mg/dL (74-106); Potassium 3.7 meq/L (3.5-5.1)
[2018-01-18 05:43] LABS: Sodium 135 meq/L (136-145)
[2018-01-18 07:22] VITALS: RESP 18
--- NOTE | 2018-01-18 08:01 | XR ---
EXAM DATE: 01/18/2018 5:00 AM EDT AGE/SEX: 87 years / Female INDICATIONS: Evaluate for pneumothorax. CLINICAL DATA: This is the patient's subsequent encounter. Patient reports that signs and symptoms h ave been present for 2 days and indicates a pain score of 2/10. MEDICAL/SURGICAL HISTORY: Hypertension. Chronic obstructive pulmonary disease. Stroke. A-Fib . None. COMPARISON: [facility] [place], CHEST 1V SINGLE AP, 01/17/2018. . FINDINGS: There has been interval removal right thoracostomy tube. No evidence of pneumothorax. Extensive right chest wall injury is again noted. Mild bibasilar and perihilar parenchymal opacities persist. Accoun ting for rotation, cardiac contours are unchanged. CONCLUSION: No pneumothorax Electronically signed by: Celestino Jaime MD 01/18/2018 6:14 AM EDT
[2018-01-18] MEDS: levETIRAcetam 500 MG Tablet PO SCH (08:41)
[2018-01-18] MEDS: amLODIPine 10 MG Tablet PO SCH (08:41)
[2018-01-18] MEDS: Calcium/Vitamin D 250/125 MG Tablet PO SCH (08:41)
[2018-01-18] MEDS: Sodium Chloride 0.9% 2 ML Flush BID IV.FLUSH SCH (08:41)
[2018-01-18] MEDS: Famotidine 20 MG Tablet PO SCH (08:41)
[2018-01-18] MEDS: Docusate Sodium 100 MG Capsule PO SCH (08:41)
[2018-01-18] MEDS: Lisinopril 20 MG Tablet PO SCH (08:41)
[2018-01-18] MEDS: Polyethylene Glycol 3350 17 GM Packet PO SCH (08:41)
[2018-01-18] MEDS: Gabapentin 100 MG Capsule PO SCH ×2 (08:41→12:37)
[2018-01-18 08:51] VITALS: BP 179/81; PULSE 69; TEMP 97.4; O2SAT 98
--- NOTE | 2018-01-18 16:50 | P.DS ---
Date of admission: 01/16/18 04:03 Primary care physician: Rishabh Beck Brief History from admission: S/P Fall DS: Diagnosis - Discharge Diagnosis (1) Ribs, multiple fractures Status: Acute (2) Pneumothorax Status: Acute (3) Pulmonary contusion Status: Acute (4) Fracture of clavicle, right, closed Status: Acute DS: Summary Hospital Course: [place]: Fell out of a chair landing on her right side. No LOC. INJURIES: RIGHT rib fxs (multiple) RIGHT PTX RIGHT pulmonary contusion RIGHT clavicle fx (non-op) PMHx: HLD, CVA, A-fib, COPD, HTN, hypothyroidism, osteoarthritis RIGHT rib fxs, RIGHT PTX, RIGHT pulmonary contusion Supportive care 01/16: RIGHT CT placement 01/17: RIGHT CT removed Pulmonary toileting CXR today shows no PTX Keep current CT dressing in place until Saturday. Then may remove and leave open to air [address] around [address] site and should be removed in 1 week Pain control Bowel regimen OOB- PT and OT ordered OK for Plavix and ASA RIGHT clavicle fx Orthopedics consulted, F/U outpatient Non-op NWB RUE- maintain sling Pain control OT F/U with PCP in 1 week Plan of care discussed with patient and RN at bedside. Collaborating Trauma MD agrees with plan. Case management consulted to assist with discharge planning. Patient is clear from Trauma surgery standpoint to safely DC to [place] inpatient rehab. - Time Spent with Patient Total time spent providing and/or coordinating discharge services: Greater than 30 minutes Exam Vital signs: Vital Signs 01/17/18 17:40 01/17/18 20:00 01/17/18 21:00 Temperature 98.6 F Pulse Rate 93 H Respiratory Rate 18 18 Blood Pressure 149/67 H Pulse Oximetry 96 97 01/18/18 00:00 01/18/18 00:04 01/18/18 04:00 Temperature 98.6 F 98.6 F Pulse Rate 69 73 Respiratory Rate 16 18 16 Blood Pressure 146/85 H 150/70 H Pulse Oximetry 99 97 01/18/18 07:22 01/18/18 08:00 Temperature 97.4 F L Pulse Rate 69 Respiratory Rate 18 18 Blood Pressure 179/81 H Pulse Oximetry 98 Intake & Output 01/17/18 01/18/18 01/18/18 18:59 06:59 18:59 Intake Total 1480 / 1480 Balance 1480 / 1480 Weight 50.9 kg Intake: IV 1000 / 1000 NS Inj 1,000 ML @ 100 mls/hr IV 1000 / 1000 .CONT .Q10H WANDA Rx#:[id number] Oral 480 / 480 Other: # Voids 2 2 Date of Last Bowel Movement 01/14/18 01/14/18 # Bowel Movements 1 Results Procedures completed during hospitalization: 01/16: RIGHT CT placement 01/17: RIGHT CT removed Labs on day of discharge: Labs from last 24 hours 01/18/18 01/18/18 05:05 05:05 WBC 6.6 RBC 3.61 L Hgb 10.7 L Hct 31.0 L MCV 86.0 MCH 29.8 MCHC 34.6 RDW 13.7 Plt Count 295 MPV 7.2 Neut % (Auto) 66.2 Lymph % (Auto) 16.4 Wilcox % (Auto) 12.2 H Eos % (Auto) 4.2 H Baso % (Auto) 1.0 Neut # (Auto) 4.4 Lymph # (Auto) 1.1 Wilcox # (Auto) 0.8 Eos # (Auto) 0.3 Baso # (Auto) 0.1 WBC Differential . Differential Comment Auto diff final Sodium 135 L Potassium 3.7 Chloride 100 Carbon Dioxide 24.2 Anion Gap 11 BUN 11 Creatinine 0.55 Estimated GFR Greater than 89 Random Glucose 85 Calcium 8.1 L D - Impressions ITS Impressions Ankle X-Ray 01/16/18 00:00 CONCLUSION: Negative 2 view study. Carotid Doppler Study 01/16/18 00:00 CONCLUSION: 1. Right Internal Carotid Artery: No hemodynamically significant stenosis. 2. Left Internal Carotid Artery: No hemodynamically significant stenosis. Chest CT 01/17/18 00:00 CONCLUSION: Right chest tube in place with small right apical pneumothorax without tension. Multiple right rib fractures and right clavicle fracture Head CT 01/17/18 00:00 CONCLUSION: No evidence of acute intracranial pathology. No masses are identified. . Chest X-Ray 01/18/18 05:00 CONCLUSION: No pneumothorax Discharge Plan - Discharge Disposition Patient Disposition: [facility] Inpatient - Discharge Condition Condition: Stable - Discharge Order Discharge Orders: Discharge Order (Routine); Ordered 01/18/18 Ordered By: Anya Sim - Physicians Team Primary Care Provider: Rishabh Beck Attending Provider: Shaquille Davies Other Providers: Epi Parks MD ; Checo Pozo MD ; Systems, [employer] ; Cecilio Parsons MD ; Meme Bacon ARNP ; Vikas Real MD ; Angela Barbosa MD ; Anya Sim ARNP ; Shaquille Davies MD ; William Chu MD
--- NOTE | 2018-01-26 13:19 | P.RAD ---
Post Procedure Progress Note - Pre Procedure Diagnosis (1) Pneumothorax - Post Procedure Diagnosis (1) Pneumothorax - Procedure Information Procedure Date: 01/26/18 Supervising Radiologist: Derek Betancourt MD Anesthesia: Local - Plan of Activity Patient to Unit: Nursing Unit Patient Condition: Good See PACS Report for procedural detail/treatment. Drainage Procedure Fluoroscopy right Chest Tube Non-Tunneled Syrian Tube Size: 8 Drainage: Pleurovac
== END 2018-01-18 14:11 ==
LOC: NEPE 03:13 → NEDA 04:03 → N03 05:30 → N06 01-17 12:05
PROVIDERS: ADMIT Surgery; ATTEND Surgery

== ENCOUNTER 2018-01-26 12:45 | Inpatient (IN) ==
--- NOTE | 2018-01-26 14:31 | P.HP ---
History of Present Illness Primary Care Physician: No Primary Care Physician History of Present Illness: 87-year-old white female being admitted after a recurrence of a right-sided pneumothorax. Patient was originally nearing completion of rehab at [facility] after suffering a right-sided pneumothorax with multiple broken ribs after a fall at home. She was nearing discharge today from rehab until a chest x-ray had been performed in light of her complaining of pleuritic chest pain which then demonstrated recurrence of at least a 30% right-sided pneumothorax. 3 days ago the patient had her original chest tube removed with resolution of the pneumothorax on imaging. She was doing well with therapy. And sometime the last 24 hours she complained of pleuritic chest pain and thus the above-mentioned findings came about. Per trauma surgery's request, the patient was taken down to interventional radiology, they were unable to obtain IV access so the patient only underwent local anesthesia and had her chest tube reinserted. Inpatient Certification: I certify that the inpatient services were ordered in accordance with Medicare regulations governing the order. This includes certification that hospital inpatient services are reasonable and necessary and in the case of services not specified as inpatient-only under 42 CFR 419.22(n), that they are appropriately provided as inpatient services in accordance to with the 2-midnight benchmark under 43 CFR 412.3(e) Estimated Total Length of Stay (Days): 2 Plans for Post Hospital Care: Not yet determined Review of Systems All other systems reviewed negative except as [facility] - History History Provided By: Patient, Medical Record - Medical History Medical History: Medical History (Last Reviewed 01/26/18 @ 14:41 by Harish Britt MD) Atrial fibrillation COPD (chronic obstructive pulmonary disease) CVA (cerebral vascular accident) Hyperlipidemia Hypertension Hypothyroidism Osteoarthritis - Surgical History Surgical History: Surgical History (Last Reviewed 01/26/18 @ 14:41 by Harish Britt MD) No history of previous surgery - Family History Family History: Family History (Last Reviewed 01/26/18 @ 14:41 by Harish Britt MD) Mother Bowel obstruction Breast cancer Father Congestive heart failure - Social History I have reviewed the patient's Social History: Yes - Tobacco History Second Hand Smoke Exposure: No Smoking Status: Never smoker - Alcohol History How Often Do You Have a Drink Containing Alcohol: 4 or more times a week ( Patient drinks 2 glasses of wine daily.) - Substance Use History Substance History: No History of Abuse - Travel History History of Recent Travel: No Medications and Allergies Active Medications: Active Medications Amlodipine Besylate (Norvasc) 10 mg PO DAILY WANDA Aspirin (Ecotrin) 81 mg PO DAILY WANDA Atorvastatin Calcium (Lipitor) 40 mg PO HS WANDA Gabapentin (Neurontin) 100 mg PO TID WANDA Levetiracetam (Keppra) 500 mg PO BID WANDA Levothyroxine Sodium (Synthroid) 88 mcg PO DAILY WANDA Sodium Chloride (Ns Flush) 2 ml IV.FLUSH BID WANDA Sodium Chloride (Ns Flush) 2 ml IV.FLUSH PRN PRN PRN Reason: FLUSH AFTER USING IV ACCESS Allergies Allergy/AdvReac Type Severity Reaction Status Date / Time No Known Allergies Allergy Unverified 01/18/18 16:26 Home Medications Medication Instructions Recorded Confirmed Type amlodipine 10 mg PO DAILY 01/16/18 01/18/18 History atorvastatin 40 mg PO HS 01/16/18 01/18/18 History gabapentin 100 mg PO TID 01/16/18 01/18/18 History levetiracetam 500 mg PO BID 01/16/18 01/18/18 History losartan 100 mg PO DAILY 01/16/18 01/18/18 History magnesium hydroxide [Milk of 15 ml PO DAILY PRN 01/16/18 01/18/18 History Magnesia] Exam Narrative: VS: afebrile GENERAL: Lying in PACU on portable bed, no acute distress SKIN: Warm and dry. Bruising over right side chest EYES: No scleral icterus. No injection or drainage. ENT: No nasal bleeding or discharge. Mucous membranes pink and moist. Dentures in place CARDIOVASCULAR: Regular rate and rhythm. no murmurs RESPIRATORY: No accessory muscle use. Mildly diminished breath sounds in the bases which are otherwise clear GASTROINTESTINAL: Abdomen, ND Extremities: No clubbing, cyanosis, or edema. No obvious deformities. MUSCULOSKELETAL: adequate muscle bulk and tone for age and habitus NEUROLOGICAL: Awake and alert. No obvious cranial nerve deficits. No facial droop nor slurred speech noted. PSYCHIATRIC: Appropriate mood and affect; insight and judgment normal. Caprini VTE Risk Assessment Caprini VTE Risk Assessment: Moderate/High Risk (score >= 2) Caprini Risk Assessment Model: Point Value = 1 Point Value = 2 Point Value = 3 Point Value = 5 Age 41-60 Minor surgery BMI > 25 kg/m2 Swollen legs Varicose veins or History of unexplained or recurrent spontaneous Oral contraceptives or hormone replacement Sepsis (< 1 month) Serious lung disease, including pneumonia (< 1 month) Abnormal pulmonary function Acute myocardial infarction Congestive heart failure (< 1 month) History of inflammatory bowel disease Medical patient at bed rest Age 61-74 Arthroscopic surgery Major open surgery (> 45 min) Laparoscopic surgery (> 45 min) Malignancy Confined to bed (> 72 hours) Immobilizing plaster cast Central venous access Age >= 75 History of VTE Family history of VTE Factor V Leiden Prothrombin [id number] Lupus anticoagulant Anticardiolipin antibodies Elevated serum homocysteine Heparin-induced thrombocytopenia Other congenital or acquired thrombophilia Stroke (< 1 month) Elective arthroplasty Hip, pelvis, or leg fracture Acute spinal cord injury (< 1 month) Prophylaxis Regimen: Total Risk Factor Score Risk Level Prophylaxis Regimen 0-1 Low Early ambulation 2 Moderate Order ONE of the following: *Sequential Compression Device (SCD) *Heparin 5000 units SQ BID 3-4 Higher Order ONE of the following medications: *Heparin 5000 units SQ TID *Enoxaparin/Lovenox 40 mg SQ daily (WT < 150 kg, CrCl > 30 mL/min) *Enoxaparin/Lovenox 30 mg SQ daily (WT < 150 kg, CrCl > 10-29 mL/min) *Enoxaparin/Lovenox 30 mg SQ BID (WT < 150 kg, CrCl > 30 mL/min) AND/OR *Sequential Compression Device (SCD) 5 or more Highest Order ONE of the following medications: *Heparin 5000 units SQ TID (Preferred with Epidurals) *Enoxaparin/Lovenox 40 mg SQ daily (WT < 150 kg, CrCl > 30 mL/min) *Enoxaparin/Lovenox 30 mg SQ daily (WT < 150 kg, CrCl > 10-29 mL/min) *Enoxaparin/Lovenox 30 mg SQ BID (WT < 150 kg, CrCl > 30 mL/min) AND *Sequential Compression Device (SCD) Assessment and Plan - Plan 87-year-old white female admitted after recurrence of right-sided pneumothorax. Pneumothorax -s/p chest tube insertion, trauma surgery following and managing Right comminuted, midshaft, mildly displaced clavicle fracture Multiple right sided rib fractures -sling to RUE, limited ROM right shoulder and arm, nonsurgical mgmt for now -continue with comprehensive rehabilitation -pain management with bowel regimen -f/u with ortho outpatient Dr. Elias Atrial fibrillation, rate controlled -Continue on Lopressor Hypothyroidism - Synthroid Hypertension -continue on Norvasc and Cozaar Hx of CVA -continue on ASA and Plavix -continue on statin therapy DVT prophylaxis -Lovenox sq
--- NOTE | 2018-01-26 14:59 | XR ---
EXAM DATE: 01/26/2018 12:00 AM EDT AGE/SEX: 87 years / Female INDICATIONS: Post chest tube. CLINICAL DATA: This is the patient's subsequent encounter. Patient reports that signs and symptoms h ave been present for 3 days and indicates a pain score of Nonresponsive. MEDICAL/SURGICAL HISTORY: Non-responsive. Non-responsive. COMPARISON: [facility], CHEST 2V PA&LAT, 01/26/2018. . FINDINGS: Interval placement of right apical chest tube with significant improved right-sided pneumothorax. Benito y small residual right apical pneumothorax. Redemonstration of multiple right-sided rib fractures. Re mainder of the exam is unchanged. CONCLUSION: 1. Interval placement of right apical chest tube with trace residual right-sided pneumothorax. Electronically signed by: Yoel Rouse MD 01/26/2018 2:58 PM EDT
--- NOTE | 2018-01-26 15:01 | P.CON ---
History of Present Illness Service: TRAUMA Consult date: 01/26/18 Requesting Physician: Erika Epperson Reason for Consult: RIGHT PTX Primary Care Provider: No Primary Care Physician Chief Complaint: NONE History of Present Illness: [place]: This is a pleasant 87-year-old female who sustained a mechanical fall on 01/16/2018. She fell off a stool and landed on her right side. She complained of right chest and right shoulder pain. She was a trauma transfer from [facility]. INJURIES: RIGHT clavicle fx RIGHT rib fx RIGHT PTX. PMHx: HTN. HLD. COPD. Hypothyroidism. CVA. Osteoarthritis. Procedures: 01/16: Right chest tube placed 01/18: Right chest tube removed at bedside without incident 01/18/2018: [facility]. 01/26/2018: Approximate 30% right PTX noted on a.m. chest x-ray. Called to evaluate by rehab medicine -Dr. Epperson Patient OOB and sitting in a wheelchair. No signs or symptoms of distress noted. On 5 L nasal cannula. No complaints offered from patient. She was hoping she could go home today, but understands she will need a CT due to pneumothorax. Review of Systems All other systems reviewed negative except as stated in HPI Constitutional: Denies anorexia, Denies body ache(s), Denies chills, Denies daytime sleepiness, Denies excessive sweating, Denies fatigue, Denies fever(s), Denies headache(s), Denies increased appetite, Denies lack of energy, Denies malaise, Denies night sweats, Denies weakness, Denies weight gain, Denies weight loss, Denies other Eyes: Denies blind spots, Denies blurry vision, Denies bulging eyes, Denies change in vision, Denies double vision, Denies discharge, Denies dry eyes, Denies floaters, Denies irritation, Denies itchy eyes, Denies loss of vision, Denies pain, Denies requires corrective lenses, Denies sensitivity to light, Denies other Ears, Nose, Mouth, and Throat: Denies abnormal hearing, Denies bleeding gums, Denies bad breath, Denies change in voice, Denies dental pain, Denies difficulty swallowing, Denies dizziness, Denies dry mouth, Denies ear discharge , Denies ear pain, Denies facial pain, Denies headache(s), Denies hearing loss, Denies hoarseness, Denies lip swelling, Denies nosebleed, Denies mouth lesions, Denies mouth pain, Denies nasal congestion, Denies nasal discharge, Denies nasal obstruction, Denies nasal trauma, Denies neck lump, Denies neck pain, Denies nose pain, Denies pain with swallowing, Denies poor balance, Denies post nasal drip, Denies ringing in the ears, Denies sinus pain, Denies sinus pressure , Denies sore throat, Denies throat swelling, Denies tongue swelling, Denies other Cardiovascular: Denies chest pain, Denies chest pain at rest, Denies chest pain with activity, Denies excessive sweating, Denies fainting, Denies fast heart rate, Denies foot swelling, Denies generalized swelling, Denies irregular heart rhythm, Denies leg pain with activity, Denies leg sores, Denies leg swelling, Denies lightheadedness, Denies radiating jaw, neck or arm pain, Denies rapid, pounding, or irregular heartbeat, Denies shortness of breath, Denies shortness of breath with activity, Denies shortness of breath when lying down, Denies shortness of breath causing sudden awakening, Denies slow heart rate, Denies other Respiratory: Denies change in phlegm color, Denies chest congestion, Denies cough, Denies coughing up blood, Denies excessive phlegm production, Denies pain on inspiration, Denies pain with cough, Denies shortness of breath, Denies shortness of breath with activity, Denies snoring, Denies stridor, Denies wheezing, Denies other Gastrointestinal: Denies abdominal pain, Denies belching, Denies black, tarry stools, Denies bloating, Denies bright, red blood in stools, Denies change in bowel habits, Denies constant urge to pass stool, Denies change in stools, Denies coffee ground vomit, Denies constipation, Denies cramping, Denies difficulty swallowing, Denies excessive passing of gas, Denies feeling full early, Denies heartburn, Denies incontinent of stools, Denies loose stools, Denies nausea, Denies pain with swallowing, Denies vomiting, Denies vomiting blood, Denies other Genitourinary: Denies abnormal periods, Denies abnormal vaginal bleeding, Denies absent period, Denies bleeding between periods, Denies blood in urine, Denies difficulty starting urination, Denies difficulty urinating, Denies dribbling after urination, Denies frequent nighttime urination, Denies genital itching, Denies genital lesions, Denies heavy periods, Denies hot flashes, Denies light periods, Denies nipple discharge, Denies painful intercourse, Denies painful periods, Denies painful urination, Denies pelvic pain, Denies prolapse symptoms, Denies sexual problems, Denies side pain, Denies urinary incontinence, Denies urinary urgency, Denies vaginal discharge, Denies vaginal dryness, Denies vaginal odor, Denies vaginal itching, Denies other Musculoskeletal: Denies abnormal walking, Denies back pain, Denies body aches, Denies decreased muscle mass, Denies deformity, Denies joint pain, Denies joint swelling, Denies limited joint movement, Denies loss of height, Denies muscle cramps, Denies muscle weakness, Denies neck pain, Denies numbness, Denies radiating pain into limb, Denies stiffness, Denies tingling, Denies other Skin/Breast: Denies acne, Denies bleeding lesions, Denies boil, Denies breast swelling, Denies breast skin changes, Denies breast pain, Denies breast lump, Denies change in breast shape, Denies change in hair, Denies change in skin color, Denies changing lesions, Denies dry skin, Denies excessive hair growth, Denies hair loss, Denies itching, Denies lesions, Denies nail changes, Denies new lesions, Denies nipple discharge, Denies non-healing lesions, Denies redness , Denies sensitivity to light, Denies rash, Denies skin pain, Denies skin ulcer , Denies sores, Denies stretch wilson, Denies unusual bruising, Denies wounds, Denies yellowing of the skin, Denies other Neurologic: Denies abnormal hearing, Denies abnormal movements, Denies abnormal speech, Denies abnormal walking, Denies behavioral changes, Denies burning sensations, Denies confusion, Denies dizziness, Denies fainting, Denies frequent falls, Denies headache(s), Denies lack of coordination, Denies localized weakness, Denies loss of vision, Denies memory loss, Denies numbness, Denies other visual disturbances, Denies radiating pain, Denies restless legs, Denies convulsions, Denies seizure-like activity, Denies sensory deficit, Denies tingling, Denies tingling/numbness/burning sensations, Denies tremor(s), Denies unsteadiness, Denies weakness, Denies other Psychiatric: Denies abnormal sleep pattern, Denies anxiety, Denies behavioral changes, Denies change in appetite, Denies change in sex drive, Denies confusion , Denies depression, Denies difficulty concentrating, Denies hearing things others do not hear, Denies hopelessness, Denies irritability, Denies lack of enjoyment, Denies memory loss, Denies mood swings, Denies panic attacks, Denies paranoia, Denies seeing things others do not see, Denies sensing things others do not sense, Denies tactile hallucinations, Denies thoughts of hurting/killing others, Denies thoughts of hurting/killing yourself, Denies other Endocrine: Denies cold intolerance, Denies excessive sweating, Denies flushing, Denies heat intolerance, Denies increased hunger, Denies increased thirst, Denies increased urination, Denies rapid, pounding, or irregular heartbeat, Denies other Hematologic/Lymphatic: Denies easy bleeding, Denies easy bruising, Denies enlarged lymph nodes, Denies other Allergic/Immunologic: Denies GI upset with certain foods, Denies hives, Denies itchy eyes, Denies lip swelling, Denies seasonal runny nose, Denies throat swelling, Denies tongue swelling, Denies wheezing, Denies other PMFSH - History History Provided By: Patient, Medical Record - Medical History Medical History: Medical History (Last Reviewed 01/26/18 @ 15:11 by ADITI Tinoco ) Atrial fibrillation COPD (chronic obstructive pulmonary disease) CVA (cerebral vascular accident) Hyperlipidemia Hypertension Hypothyroidism Osteoarthritis - Surgical History Surgical History: Surgical History (Last Reviewed 01/26/18 @ 14:41 by Harish Britt MD) No history of previous surgery - Family History Family History: Family History (Last Reviewed 01/26/18 @ 14:41 by Harish rBitt MD) Mother Bowel obstruction Breast cancer Father Congestive heart failure - Social History I have reviewed the patient's Social History: Yes - Tobacco History Second Hand Smoke Exposure: No Tobacco Use In Past 30 Days: No Smoking Status: Never smoker - Alcohol History How Often Do You Have a Drink Containing Alcohol: 4 or more times a week ( Patient drinks 2 glasses of wine daily.) - Substance Use History Substance History: No History of Abuse - Travel History History of Recent Travel: No Medications and Allergies Allergies Allergy/AdvReac Type Severity Reaction Status Date / Time No Known Allergies Allergy Unverified 01/18/18 16:26 Home Medications Medication Instructions Recorded Confirmed Type amlodipine 10 mg PO DAILY 01/16/18 01/18/18 History atorvastatin 40 mg PO HS 01/16/18 01/18/18 History gabapentin 100 mg PO TID 01/16/18 01/18/18 History levetiracetam 500 mg PO BID 01/16/18 01/18/18 History losartan 100 mg PO DAILY 01/16/18 01/18/18 History magnesium hydroxide [Milk of 15 ml PO DAILY PRN 01/16/18 01/18/18 History Magnesia] Active Medications: Active Medications Amlodipine Besylate (Norvasc) 10 mg PO DAILY WANDA Aspirin (Ecotrin) 81 mg PO DAILY WANDA Atorvastatin Calcium (Lipitor) 40 mg PO HS WANDA Gabapentin (Neurontin) 100 mg PO TID WANDA Levetiracetam (Keppra) 500 mg PO BID WANDA Levothyroxine Sodium (Synthroid) 88 mcg PO DAILY@0600 WANDA Sodium Chloride (Ns Flush) 2 ml IV.FLUSH BID WANDA Sodium Chloride (Ns Flush) 2 ml IV.FLUSH PRN PRN PRN Reason: FLUSH AFTER USING IV ACCESS Physical Exam Narrative: GENERAL: This is a 87-year-old female OOB, sitting up in a wheelchair. No distress noted. SKIN: Warm and dry. HEAD: Atraumatic. Normocephalic. EYES: PERRLA ENT: No nasal bleeding or discharge. Mucous membranes pink and moist. NECK: Trachea midline. No JVD. CARDIOVASCULAR: Regular rate and rhythm. RESPIRATORY: O2 nasal cannula 5 L. No accessory muscle use. Lungs are clear to auscultation, but decreased throughout. Breath sounds equal bilaterally. No distress or dyspnea. GASTROINTESTINAL: BS + x 4 quads. Abdomen soft, non-tender, nondistended. MUSCULOSKELETAL: Extremities without cyanosis, or edema. Right arm in sling. + peripheral pulses x 4 extremities. Warm with good capillary refill and sensation. MAEW. NEUROLOGICAL: Awake and alert. Normal speech and pattern. Assessment and Plan - Assessment (1) Pneumothorax, right Code(s): J93.9 - Pneumothorax, unspecified Status: Acute (2) Right rib fracture Code(s): S22.31XA - Fracture of one rib, right side, initial encounter for closed fracture Status: Acute (3) Fracture of clavicle, right, closed Code(s): S42.001A - Fracture of unspecified part of right clavicle, initial encounter for closed fracture Status: Acute - Plan [place]: This is a pleasant 87-year-old female who sustained a mechanical fall on 01/16/2018. She fell off a stool and landed on her right side. She complained of right chest and right shoulder pain. She was a trauma transfer from [facility]. INJURIES: RIGHT clavicle fx RIGHT rib fx RIGHT PTX. PMHx: HTN. HLD. COPD. Hypothyroidism. CVA. Osteoarthritis. Procedures: 01/16: Right chest tube placed 01/18: Right chest tube removed at bedside without incident 01/26: Right chest tube placed by IR RIGHT rib fx RIGHT PTX O2 nasal cannula as needed Supportive care Aggressive pulmonary toileting Duo nebs as needed 01/16: Right chest tube placed 01/18: Right chest tube removed at bedside without incident 01/26: Right chest tube placed by IR Daily chest x-ray while chest tube in place Right chest tube in place to Pleur-evac drainage system per IR Daily dressing changes Pain management Encourage out of bed PT and OT ordered RIGHT clavicle fx No surgical intervention at this time Supportive care Pain management Encourage out of bed PT and OT ordered NWB RUE -sling for comfort and support Follow-up with orthopedics outpatient - Attending Attestation patient seen and examined CXR reviewed-has a 30% PTX ,asymptomatic but given size will require CT placement dw IR physician (2) Right rib fracture Qualifiers: Encounter type: initial encounter Rib fracture type: multiple ribs Fracture type: closed Qualified Code(s): S22.41XA - Multiple fractures of ribs, right side, initial encounter for closed fracture (3) Fracture of clavicle, right, closed Qualifiers: Encounter type: initial encounter Clavicle location: lateral end Fracture alignment: displaced Qualified Code(s): S42.031A - Displaced fracture of lateral end of right clavicle, initial encounter for closed fracture
[2018-01-26] MEDS: Gabapentin 100 MG Capsule PO SCH (17:40)
[2018-01-26] MEDS: levETIRAcetam 500 MG Tablet PO SCH (20:45)
[2018-01-27] MEDS: Levothyroxine 88 MCG Tablet PO SCH (06:05)
[2018-01-27] MEDS: levETIRAcetam 500 MG Tablet PO SCH ×2 (09:42→21:24)
[2018-01-27] MEDS: amLODIPine 10 MG Tablet PO SCH (09:43)
[2018-01-27] MEDS: Gabapentin 100 MG Capsule PO SCH ×3 (09:43→18:24)
--- NOTE | 2018-01-27 12:43 | P.PN ---
Subjective Interval history: Follow-up for pneumothorax in the right side. Nursing denies any deterioration since last night. Patient herself has no new complaints. Physical Exam Vital signs: Vital Signs 01/26/18 13:27 01/26/18 13:30 01/26/18 14:00 Temperature 97.9 F Pulse Rate 67 70 72 Respiratory Rate 22 18 19 Blood Pressure 179/81 H 163/76 H 150/70 H Pulse Oximetry 94 L 94 L 96 01/26/18 14:15 01/26/18 14:30 01/26/18 14:45 Temperature Pulse Rate 68 67 70 Respiratory Rate 15 17 14 Blood Pressure 153/62 H 145/66 H 154/70 H Pulse Oximetry 98 98 98 01/26/18 16:00 01/26/18 20:00 01/27/18 00:00 Temperature 97.2 F L 97.9 F 98 F Pulse Rate 71 86 88 Respiratory Rate 18 18 18 Blood Pressure 157/72 H 132/53 L 175/81 H Pulse Oximetry 96 92 L 98 01/27/18 04:00 01/27/18 08:00 01/27/18 11:56 Temperature 97.8 F 97.9 F 97.9 F Pulse Rate 78 86 84 Respiratory Rate 17 18 18 Blood Pressure 176/75 H 173/81 H 151/66 H Pulse Oximetry 99 92 L 96 Intake & Output 01/26/18 01/27/18 01/27/18 18:59 06:59 18:59 Intake Total 480 / 480 340 / 340 Balance 480 / 480 340 / 340 Weight 50 kg Intake: Oral 480 / 480 340 / 340 Other: # Voids 4 3 # Bowel Movements 0 Narrative: Clear lungs bilaterally, unlabored breathing Chest tube in place over the right chest No acute distress Awake and alert Results - Labs Laboratory Results - last 24 hr 01/27/18 08:05 POC Glucose 101 - Imaging Impressions Chest X-Ray 01/26/18 00:00 CONCLUSION: 1. Interval placement of right apical chest tube with trace residual right- sided pneumothorax. Assessment and Plan - Plan 87-year-old white female admitted after recurrence of right-sided pneumothorax. Pneumothorax -s/p chest tube insertion, trauma surgery following and managing, possible plan to remove chest tube today Right comminuted, midshaft, mildly displaced clavicle fracture Multiple right sided rib fractures -sling to RUE, limited ROM right shoulder and arm, nonsurgical mgmt for now -continue with comprehensive rehabilitation -pain management with bowel regimen -f/u with ortho outpatient Dr. Elias Atrial fibrillation, rate controlled -Continue on Lopressor Hypothyroidism - Synthroid Hypertension -continue on Norvasc and Cozaar Hx of CVA -continue on ASA and Plavix -continue on statin therapy DVT prophylaxis -Lovenox sq Discharge Planning: Possible discharge tomorrow if chest tube is removed today and cleared with trauma surgery
--- NOTE | 2018-01-27 12:43 | P.PN ---
Subjective Interval history: No PTX on CXR today- CT placed to waterseal Complains of acid reflux Physical Exam Vital signs: Vital Signs 01/26/18 13:27 01/26/18 13:30 01/26/18 14:00 Temperature 97.9 F Pulse Rate 67 70 72 Respiratory Rate 22 18 19 Blood Pressure 179/81 H 163/76 H 150/70 H Pulse Oximetry 94 L 94 L 96 01/26/18 14:15 01/26/18 14:30 01/26/18 14:45 Temperature Pulse Rate 68 67 70 Respiratory Rate 15 17 14 Blood Pressure 153/62 H 145/66 H 154/70 H Pulse Oximetry 98 98 98 01/26/18 16:00 01/26/18 20:00 01/27/18 00:00 Temperature 97.2 F L 97.9 F 98 F Pulse Rate 71 86 88 Respiratory Rate 18 18 18 Blood Pressure 157/72 H 132/53 L 175/81 H Pulse Oximetry 96 92 L 98 01/27/18 04:00 01/27/18 08:00 01/27/18 11:56 Temperature 97.8 F 97.9 F 97.9 F Pulse Rate 78 86 84 Respiratory Rate 17 18 18 Blood Pressure 176/75 H 173/81 H 151/66 H Pulse Oximetry 99 92 L 96 Intake & Output 01/26/18 01/27/18 01/27/18 18:59 06:59 18:59 Intake Total 480 / 480 340 / 340 Balance 480 / 480 340 / 340 Weight 50 kg Intake: Oral 480 / 480 340 / 340 Other: # Voids 4 3 # Bowel Movements 0 Narrative: GENERAL: 87-year-old well-nourished, well developed female lying in bed no acute distress. SKIN: Warm and dry. CARDIOVASCULAR: Regular rate and rhythm. RESPIRATORY: No accessory muscle use. Lungs clear and diminished to auscultation. Breath sounds equal bilaterally. Right apical chest tube secured to Pleur-evac system on -20 cm suction. No air leak noted. GASTROINTESTINAL: Abdomen soft, non-tender, nondistended. + BS. MUSCULOSKELETAL: Extremities without cyanosis, or edema. MAEW, + perfused NEUROLOGICAL: Awake and alert. Normal speech. Results - Labs Laboratory Results - last 24 hr 01/27/18 08:05 POC Glucose 101 - Imaging Impressions Chest X-Ray 01/26/18 00:00 CONCLUSION: 1. Interval placement of right apical chest tube with trace residual right- sided pneumothorax. Assessment and Plan - Assessment (1) Pneumothorax, right Code(s): J93.9 - Pneumothorax, unspecified Status: Acute (2) Right rib fracture Code(s): S22.31XA - Fracture of one rib, right side, initial encounter for closed fracture Status: Acute (3) Fracture of clavicle, right, closed Code(s): S42.001A - Fracture of unspecified part of right clavicle, initial encounter for closed fracture Status: Acute - Plan RIGHT rib fx, RIGHT PTX Supportive care 01/26: Right chest tube placed by IR Chest tube placed to waterseal CXR in a.m. Pain control Bowel regimen OOB-PT and OT ordered RIGHT clavicle fx Evaluated by orthopedics, follow-up as outpatient Pain control NWB RUE -sling for comfort and support Plan of care discussed with patient at bedside. Collaborating Trauma surgeon agrees with plan. Case management consulted to assist with discharge planning. Plan to discharge home in 1-2 days when chest tube is removed. (2) Right rib fracture Qualifiers: Encounter type: initial encounter Rib fracture type: multiple ribs Fracture type: closed Qualified Code(s): S22.41XA - Multiple fractures of ribs, right side, initial encounter for closed fracture (3) Fracture of clavicle, right, closed Qualifiers: Encounter type: initial encounter Clavicle location: lateral end Fracture alignment: displaced Qualified Code(s): S42.031A - Displaced fracture of lateral end of right clavicle, initial encounter for closed fracture
[2018-01-27] MEDS: Famotidine 20 MG Tablet PO SCH ×2 (12:50→21:24)
--- NOTE | 2018-01-27 13:42 | XR ---
EXAM DATE: 01/27/2018 12:00 AM EDT AGE/SEX: 87 years / Female INDICATIONS: Evaluate for pneumothorax. CLINICAL DATA: This is the patient's subsequent encounter. Patient reports that signs and symptoms h ave been present for 3 days and indicates a pain score of 5/10. MEDICAL/SURGICAL HISTORY: . Cardiovascular disease. Hypertension. Chronic obstructive pulmonary disease. CVA. None. COMPAR[place]: [facility] [place], [place]26/2018. . FINDINGS: Right-sided chest tube is noted. I do not see a pneumothorax. There is linear atelectasis at the left lung base. Aortic calcification and cardiomegaly. CONCLUSION: I do not see a pneumothorax. Electronically signed by: Dhaval Echevarria MD 01/27/2018 1:41 PM EDT
--- NOTE | 2018-01-27 16:16 | XR ---
EXAM DATE: 01/27/2018 3:50 PM EDT AGE/SEX: 87 years / Female INDICATIONS: S/p chest tube removal. CLINICAL DATA: This is the patient's initial encounter. Patient reports that signs and symptoms have been present for 4 - 6 days and indicates a pain score of 0/10. MEDICAL/SURGICAL HISTORY: Cardiovascular disease. Hypertension. COPD, CVA None. COMPARISON: [facility] – [place], CHEST EXPIRATION ONLY, 01/27/2018. . FINDINGS: There is no evidence of pneumothorax following right thoracostomy tube removal. There is stable pleur al thickening on the right. Mild basilar atelectasis exacerbated by expiratory technique. Cardiomedia stinal contours are unchanged. CONCLUSION: No pneumothorax Electronically signed by: Celestino Jaime MD 01/27/2018 4:14 PM EDT
[2018-01-28] MEDS: Levothyroxine 88 MCG Tablet PO SCH (05:29)
--- NOTE | 2018-01-28 06:44 | XR ---
EXAM DATE: 01/28/2018 12:00 AM EDT AGE/SEX: 87 years / Female INDICATIONS: Follow up trauma, pain right arm, back, chest and ribs CLINICAL DATA: This is the patient's subsequent encounter. Patient reports that signs and symptoms h ave been present for 2 weeks and indicates a pain score of 5/10. MEDICAL/SURGICAL HISTORY: Cardiovascular disease. Coronary artery stent. COMPARISON: [facility] – [place], CHEST 1V SINGLE AP, 01/27/2018. . FINDINGS: The cardiac silhouette is enlarged in transverse diameter. There is prominence of the aortic knob is with calcification characteristic of atherosclerotic vascular disease. There is no evidence of pneumo thorax. Multiple right rib fractures are present. CONCLUSION: There is no evidence of pneumothorax. Electronically signed by: Derek Betancourt MD 01/28/2018 6:43 AM EDT
[2018-01-28] MEDS: levETIRAcetam 500 MG Tablet PO SCH (09:13)
[2018-01-28] MEDS: amLODIPine 10 MG Tablet PO SCH (09:14)
[2018-01-28] MEDS: Famotidine 20 MG Tablet PO SCH (09:14)
[2018-01-28] MEDS: Gabapentin 100 MG Capsule PO SCH ×2 (09:14→13:24)
--- NOTE | 2018-01-28 11:16 | P.PN ---
Subjective Interval history: Follow up for pneumothorax-chest tube removed yesterday, no shortness of breath , minimal discomfort around chest tube site. No chest pain. Ambulated with physical therapy, at this time she is performing her own ADLs. No fever, no nausea, no vomiting, no diarrhea. Patient anxious to go home. Physical Exam Vital signs: Vital Signs 01/27/18 11:56 01/27/18 16:00 01/27/18 20:00 Temperature 97.9 F 97.9 F 97.9 F Pulse Rate 84 78 84 Respiratory Rate 18 18 17 Blood Pressure 151/66 H 179/73 H 156/70 H Pulse Oximetry 96 94 L 94 L 01/28/18 00:00 01/28/18 04:00 01/28/18 08:00 Temperature 98.2 F 97.6 F 97.7 F Pulse Rate 83 72 76 Respiratory Rate 17 17 17 Blood Pressure 134/63 128/64 164/80 H Pulse Oximetry 96 96 99 01/28/18 09:14 Temperature Pulse Rate 77 Respiratory Rate Blood Pressure Pulse Oximetry Intake & Output 01/27/18 01/28/18 01/28/18 18:59 06:59 18:59 Intake Total 480 / 480 Output Total 100 / 100 Balance -100 / -100 480 / 480 Weight 49 kg Intake: Oral 480 / 480 Output: Urine 100 / 100 Other: # Voids 4 5 Date of Last Bowel Movement 01/27/18 Narrative: GENERAL: 87-year-old well-nourished, NAD SKIN: Warm and dry. CARDIOVASCULAR: Regular rate and rhythm. RESPIRATORY: No accessory muscle use. Lungs clear and diminished to auscultation. Breath sounds equal bilaterally. Right anterior cw with dressing D/I. No subcutaneous emphysema. GASTROINTESTINAL: Abdomen soft, non-tender, nondistended. + BS. MUSCULOSKELETAL: Extremities without cyanosis, or edema. MAEW, pedal pulses 2+. NEUROLOGICAL: Awake and alert. Normal speech. Results - Imaging Impressions Chest X-Ray 01/27/18 00:00 CONCLUSION: I do not see a pneumothorax. Chest X-Ray 01/27/18 15:50 CONCLUSION: No pneumothorax Chest X-Ray 01/28/18 00:00 CONCLUSION: There is no evidence of pneumothorax. Assessment and Plan - Assessment (1) Right rib fracture Code(s): S22.31XA - Fracture of one rib, right side, initial encounter for closed fracture Status: Acute (2) Hypertension Code(s): I10 - Essential (primary) hypertension Status: Chronic (3) Hypothyroidism Code(s): E03.9 - Hypothyroidism, unspecified Status: Chronic (4) High cholesterol Code(s): E78.00 - Pure hypercholesterolemia, unspecified Status: Chronic (5) Pneumothorax Code(s): J93.9 - Pneumothorax, unspecified Status: Acute (6) Pulmonary contusion Code(s): S27.329A - Contusion of lung, unspecified, initial encounter Status: Acute - Plan 87-year-old white female admitted after recurrence of right-sided pneumothorax. Pneumothorax -s/p chest tube insertion, -Trauma surgery following and managing -CT removed 01/27, chest x-ray reviewed, resolution of pneumo -Trauma surgery cleared for discharge Right comminuted, midshaft, mildly displaced clavicle fracture Multiple right sided rib fractures -sling to RUE, limited ROM right shoulder and arm, nonsurgical mgmt for now -continue with comprehensive rehabilitation -pain management with bowel regimen -f/u with ortho outpatient Dr. Elias Atrial fibrillation, rate controlled -Continue on Lopressor Hypothyroidism - Synthroid Hypertension -continue on Norvasc and Cozaar Hx of CVA -continue on ASA and Plavix -continue on statin therapy DVT prophylaxis -Lovenox sq Case management for discharge planning, family wants SNF placement. Patient anxious to go home, however has dementia and patient cannot be caregiver for him. Code Status: Full code Discussed Condition With: RN, pt, CM Discharge Planning: to SNF today if arrangements made (1) Right rib fracture Qualifiers: Encounter type: initial encounter Rib fracture type: multiple ribs Fracture type: closed Qualified Code(s): S22.41XA - Multiple fractures of ribs, right side, initial encounter for closed fracture (2) Hypertension Qualifiers: Hypertension type: essential hypertension Qualified Code(s): I10 - Essential (primary) hypertension (3) Hypothyroidism Qualifiers: Hypothyroidism type: unspecified Qualified Code(s): E03.9 - Hypothyroidism, unspecified
[2018-01-28 14:00] VITALS: BP 135/74; PULSE 76; RESP 16; TEMP 97.3; O2SAT 98
--- NOTE | 2018-01-28 18:18 | P.DS ---
Date of admission: 01/26/18 12:45 Primary care physician: No Primary Care Physician Attending physician on discharge: Vladislav Mora Anticipated date of discharge: 01/28/18 Brief History from admission: 87-year-old white female being admitted after a recurrence of a right-sided pneumothorax. Patient was originally nearing completion of rehab at [facility] after suffering a right-sided pneumothorax with multiple broken ribs after a fall at home. She was nearing discharge today from rehab until a chest x-ray had been performed in light of her complaining of pleuritic chest pain which then demonstrated recurrence of at least a 30% right-sided pneumothorax. 3 days ago the patient had her original chest tube removed with resolution of the pneumothorax on imaging. She was doing well with therapy. And sometime the last 24 hours she complained of pleuritic chest pain and thus the above-mentioned findings came about. Per trauma surgery's request, the patient was taken down to interventional radiology, they were unable to obtain IV access so the patient only underwent local anesthesia and had her chest tube reinserted. DS: Diagnosis - Discharge Diagnosis (1) Right rib fracture Status: Acute (2) Hypertension Status: Chronic (3) Hypothyroidism Status: Chronic (4) High cholesterol Status: Chronic (5) Pneumothorax Status: Acute (6) Pulmonary contusion Status: Acute DS: Summary Hospital Course: 87-year-old white female was admitted after a recurrence of a right-sided pneumothorax. Patient was originally nearing completion of rehab at [facility] after suffering a right-sided pneumothorax with multiple broken ribs after a fall at home. She was nearing discharge today from rehab until a chest x -ray had been performed in light of her complaining of pleuritic chest pain which then demonstrated recurrence of at least a 30% right-sided pneumothorax. 3 days ago the patient had her original chest tube removed with resolution of the pneumothorax on imaging. She was doing well with therapy. And sometime the last 24 hours she complained of pleuritic chest pain and thus the above- mentioned findings came about. Per trauma surgery's request, the patient was taken down to interventional radiology, they were unable to obtain IV access so the patient only underwent local anesthesia and had her chest tube reinserted. Patient was followed by trauma surgery, they continue managing the chest tube. Serial x-rays were done, chest tube was removed on 01/27/2018. Postprocedure x- ray was done, showed resolution of edema. Trauma surgery clear for discharge. Patient continued to wear sling to the right upper extremity, PT and OT were consulted to continue with therapy. Patient was to follow-up with Dr. Elias as outpatient. Patient remained stable with atrial fibrillation, was continued on Lopressor. Case management was consulted for discharge planning. Patient's family requested SNF placement. Patient was discharged to SNF in stable condition. - Time Spent with Patient Total time spent providing and/or coordinating discharge services: 35 minutes Greater than 30 minutes - Quality: VTE Deep Vein Thrombosis/Pulmonary Embolism Present on Admission: No Exam Vital signs: Vital Signs 01/27/18 20:00 01/28/18 00:00 01/28/18 04:00 Temperature 97.9 F 98.2 F 97.6 F Pulse Rate 84 83 72 Respiratory Rate 17 17 17 Blood Pressure 156/70 H 134/63 128/64 Pulse Oximetry 94 L 96 96 01/28/18 08:00 01/28/18 09:14 01/28/18 12:00 Temperature 97.7 F 97.3 F L Pulse Rate 76 77 76 Respiratory Rate 17 16 Blood Pressure 164/80 H 135/74 Pulse Oximetry 99 98 Intake & Output 01/27/18 01/28/18 01/28/18 18:59 06:59 18:59 Intake Total 480 / 480 Output Total 100 / 100 Balance -100 / -100 480 / 480 Weight 49 kg 49 kg Intake: Oral 480 / 480 Output: Urine 100 / 100 Other: # Voids 4 5 Date of Last Bowel Movement 01/27/18 Weight On Admission 49 kg Results Procedures completed during hospitalization: Insertion of CT on 01/[address] on 01/27 - Impressions ITS Impressions Chest X-Ray 01/28/18 00:00 CONCLUSION: There is no evidence of pneumothorax. Discharge Plan - Discharge Disposition Patient Disposition: 03 Discharge to SNF - Discharge Condition Condition: Stable - Discharge Order Discharge Orders: Discharge Order (Routine); Ordered 01/28/18 Ordered By: Radha Ortega - Discharge Details Anticipated Discharge Date: 01/28/18 - Physicians Team Primary Care Provider: Primary Care Physici,No Attending Provider: Vladislav Mora Other Providers: Eip Parks MD ; Checo Pozo MD ; [facility] [employer] [facility] ; Cecilio Parsons MD ; Meme Bacon ARNP ; Vikas Real MD ; Angela Barbosa MD ; Anya Sim ARNP ; Shaquille Davies MD - Rxs /Orders / Referrals /Forms Prescriptions: Continue amlodipine 10 mg Tablet 10 mg PO DAILY aspirin [Aspir-81] 81 mg Tablet,Delayed Release (Dr/Ec) 81 mg PO DAILY Qty: 0 RF: 0 atorvastatin 40 mg Tablet 40 mg PO HS calcium carbonate-vitamin D3 [Calcium 500 + D] 500 mg(1,250mg) -200 unit Tablet 2 tab PO BID Qty: 0 RF: 0 clopidogrel 75 mg Tablet 75 mg PO DAILY Qty: 0 RF: 0 gabapentin 100 mg Capsule 100 mg PO TID levetiracetam 500 mg Tablet 500 mg PO BID levothyroxine 88 mcg Tablet 88 mcg PO DAILY Qty: 0 RF: 0 losartan 100 mg Tablet 100 mg PO DAILY magnesium hydroxide [Milk of Magnesia] 400 mg/5 mL Suspension 15 ml PO DAILY PRN (Reason: Constipation) Referrals: Primary Care Beverley Pritchett [Primary Care Provider] - See Instructions (follow up in 1-2 weeks ) - Discharge Instructions Patient Printed Instructions: Traumatic Pneumothorax (DC), Pulmonary Contusion (DC) - Post Discharge Care Plan Care Plan Goals: Your Health Problems: Goals to Promote Your Health: * To prevent worsening of your condition * To maintain your health at the optimal level Directions to Meet Your Goals: * Take your medications as prescribed * Follow your dietary instruction * Follow activity as directed * Keep your appointments as scheduled * Take your immunizations and boosters as scheduled * If your symptoms worsen call your PCP * If no PCP go to Urgent Care or Emergency Room Smoking is dangerous to your health. Avoid second hand smoke. You may reach the 24-hour crisis hotline for domestic abuse at .
--- NOTE | 2018-02-11 15:16 | IR ---
EXAM DATE: 01/27/2018 12:00 AM EDT AGE/SEX: 87 years / Female INDICATIONS: Patient with pneumothorax in need of chest tube placement. CLINICAL DATA: This is the patient's initial encounter. Patient reports that signs and symptoms have been present for 1 week and indicates a pain score of 0/10. MEDICAL/SURGICAL HISTORY: Hypercholesterolemia. Hypothyroidism. Hypertension. A-Fib, COPD, C VA, Osteoarthritis None. COMPARISON: No prior exams available for comparison. FLUORO TIME (min): 1.9 IMAGE SERIES: 2 ACCESS SITE: DEVICE(S): 8 [place] non-locking catheter Saúl 30cm . . PROCEDURE: 1. Fluoroscopically guided chest tube placement. 2. Conscious sedation with continuous EKG and oximetry monitoring. The risks, benefits and alternatives to the procedure were explained and verbal and written consent w as obtained. The site was prepped in sterile fashion. Full sterile technique was used, including ca p, mask, sterile gloves and gown and a large sterile sheet. Hand hygiene and 2% chlorhexidine and/or betadine/alcohol prep was utilized per protocol for cutaneous antisepsis. The skin and subcutaneous tissues were infiltrated with local anesthetic solution. With fluoroscopic guidance the chest was punctured between the first and second interspace and the pr escribed catheter was placed in the lung apex. Wall suction was applied. Post procedure images demon strate satisfactory position of the tube. The catheter was sutured in place and a Percu-Stay was дмитрий lied. Conscious sedation was performed with the prescribed dosages and duration as above in the presence of an independent trained radiology nurse to assist in the monitoring of the patient. EKG and oximetry remained stable throughout the procedure. The patient tolerated the procedure well and there were n o complications. The patient was sent to post anesthesia recovery in stable condition. CONCLUSION: 1. Uncomplicated chest tube placement as above. Electronically signed by: Derek Betancourt MD 01/27/2018 11:23 PM EDT
== END 2018-01-28 15:01 ==
LOC: HPAC 12:45 → N07 15:01
PROVIDERS: ADMIT Hospitalist; ATTEND Hospitalist